=== PATIENT | female | born 1935 | race Caucasian/White ===

== ENCOUNTER → 2016-08-26 | Outpatient (CLI) | payer MEDICARE, BC ==
[~2016-08-26] MED LIST: ALEVE 220MG220 MG PO; AMITRIPTYLINE H10 M1 PO; ARTHRITIS PAIN325 M1; ASPIRIN 81M81 MG/TA2 PO; BACTRIM DS 8001 TAB PO; CALCIUM 600600 M2 PO; CEFTIN 250250 MG/TAB PO; CELLCEPT 5500 MG/TAB PO; CEPHALEXIN500 M1 PO; CIPRO 500MG TA500 MG PO; DAILY MULTIPLE1 TA3 PO; DITROPAN 5MG TAB5 MG PO; ELIQUIS 5MG PO; ESTRACE0.1 MG/GM VG; FLOMAX 0.40.4 MG/CAP PO; LEVAQUIN 2250 MG/TAB PO; MACRODANTIN100 PO; NAPROSYN500 MG PO; NASONEX SPRAY17 GM NS; NEURONTIN100 MG/CAP PO; NORCO 325 MG-101 TAB PO; NORCO 325 MG-51 TAB PO; OXYGEN; PONARIS NS; PREDNISONE 5MG5 MG PO; PREDNISONE20 MG PO; PRIL40 PO; PRILOSEC 20MG20 MG PO; PROBIOTIC FORMU1 CAP PO; PROBIOTICA100 Milli1 PO; SYNTHROID0.05 MG/TA PO; TYLENOL 500MG500 MG PO; TYLENOL ARTHRI650 M1 PO; ULTRAM 50MG TAB50 MG PO; VANCOCIN H125 MG/CAP PO; VESICARE 5MG5 MG PO; XALATAN EYE DROPS OU; ZOFRAN ODT4 MG PO; ZOLOFT 50MG50 MG PO
== END ==
LOC: COL.RAD 09:30
DX: M41.86 Other forms of scoliosis, lumbar region (principal); M47.27 Other spondylosis with radiculopathy, lumbosacral region; M54.5 Low back pain

== ENCOUNTER → 2016-09-01 | Outpatient (CLI) | payer MEDICARE, BC | LOC: COL.RAD 11:04 | DX: M51.26 Other intervertebral disc displacement, lumbar region (principal); M25.78 Osteophyte, vertebrae | CPT/HCPCS: A9585 ==

== ENCOUNTER → 2018-11-15 | Outpatient (CLI) | payer MEDICARE, BC | LOC: COL.RAD 12:34 | DX: N30.00 Acute cystitis without hematuria (principal); N13.30 Unspecified hydronephrosis; N26.1 Atrophy of kidney (terminal) ==

== ENCOUNTER 2018-12-07 17:05 | Outpatient (CLI) | payer MEDICARE, BC ==
[~2018-12-07] VITALS: Ht 157.5 cm; Wt 42.5 kg
[2018-12-07 17:22] VITALS: BP 112/64; PULSE 53; TEMP 98.1
== END 2018-12-07 17:28 | disposition home or self-care (01) ==
LOC: EUO 17:05
DX: M81.0 Age-related osteoporosis without current pathological fracture (principal)
CPT/HCPCS: J0897

== ENCOUNTER 2019-06-23 15:08 | Outpatient (CLI) | payer MEDICARE, BC ==
[~2019-06-23] VITALS: Ht 157.5 cm; Wt 43.3 kg
[2019-06-23 15:10] VITALS: BP 117/73; PULSE 110; TEMP 97.8
[2019-06-23] MEDS ORDERED: TRIMPEX100 MG PO (16:42)
[2019-06-23] MEDS ORDERED: PROBIOTIC FORMU1 CAP PO (16:43)
[2019-06-23] MEDS ORDERED: ZOLOFT 50MG50 MG PO (16:48)
[2019-06-23] MEDS ORDERED: AMITRIPTYLINE H10 M1 PO (16:49)
[2019-06-23] MEDS ORDERED: NAMENDA XR PO (16:49)
== END 2019-06-23 16:51 | disposition home or self-care (01) ==
LOC: EUO 15:08
DX: M81.0 Age-related osteoporosis without current pathological fracture (principal)
CPT/HCPCS: J0897

== ENCOUNTER 2019-11-28 20:55 | Emergency (ER) | payer MEDICARE, BC ==
[~2019-11-28 20:55] MED LIST changes: +NAMENDA XR PO; +TRIMPEX100 MG PO
[2019-11-28 21:05] VITALS: TEMP 97.2
[2019-11-28 21:47] LABS: BASO # 0.1 (0.0-0.2); BASO % 0.8 % (0.0-2.0); EOS # 0.1 (0.0-0.7); EOS % 0.9 % (0-4.0); GRAN # 7.9 (1.4-6.5); LYMPH # 2.5 (1.2-3.4); MEAN CELL VOLUME 101 fl (80.0-100.0); MEAN CORPUSCULAR HGB CONC 29 g/dl (33.0-37.0); MEAN PLATELET VOLUME 10.2 fl (7.4-10.4); MONO # 0.6 (0.1-0.6); MONO % 5.4 % (1.7-9.3); PLATELET COUNT 368 K/mm3 (130-400); RED BLOOD COUNT 2.98 M/mm3 (4.10-5.30); REDCELL DISTRIBUTION WIDTH-CV 13.7 % (11.5-14.5)
[2019-11-28] MEDS ORDERED: TIMOPTIC 0.25%-10 OU (21:48)
[2019-11-28 21:49] LABS: HEMOGLOBIN 8.8 g/dl (12.5-16.0); MEAN CORPUSCULAR HEMOGLOBIN 30 pg (27.0-31.0)
[2019-11-28] MEDS ORDERED: LOMOTIL 0.025 M1 TAB PO (21:49)
[2019-11-28] MEDS ORDERED: ALPHAGAN OPHTH D5 ML OU (21:50)
[2019-11-28 21:57] LABS: ALANINE AMINOTRANSFERASE 13 U/L (4-34); ALBUMIN 4.3 gm/dL (3.5-5.0); ALKALINE PHOSPHATASE 73 U/L (50-136); ANION GAP 7 mmol/L (7-16); AST,SGOT 26 U/L (15-37); BILIRUBIN,TOTAL 0.3 mg/dL (0.0-1.0); BLOOD UREA NITROGEN 60 mg/dL (7-17); CALCIUM 10.1 mg/dL (8.4-10.2); CARBON DIOXIDE 26 mmol/L (22-30); CHLORIDE 108 mmol/L (98-107); CREATININE, serum 2.55 (0.52-1.25); GLUCOSE 114 mg/dL (74-106); SODIUM 141 mmol/L (137-145); TOTAL PROTEIN 8.1 gm/dL (6.4-8.2)
[2019-11-28 22:16] LABS: POTASSIUM 5.8 mmol/L (3.4-5.0)
[2019-11-28 22:17] LABS: CREATINE KINASE < 20 U/L (30-135); TROPONIN-I < 0.012 ng/mL (0.000-0.035)
[2019-11-28 23:05] LABS: COLLECTION METHOD CATHETER
[2019-11-28 23:11] LABS: PH 5 (5-8); SQUAMOUS EPITHELIAL None Seen /hpf; URINE APPEARANCE Hazy; URINE BACTERIA Rare /hpf; URINE BILIRUBIN Negative (NEGATIVE); URINE BLOOD Negative (NEGATIVE); URINE COLOR Yellow; URINE GLUCOSE Negative (NEGATIVE); URINE KETONE Negative (NEGATIVE); URINE LEUKOCYTE ESTERASE 3+ (NEGATIVE); URINE NITRATE Negative (NEGATIVE); URINE PROTEIN(semi-quant) Negative (NEGATIVE); URINE RBC 0-2 /hpf; URINE UROBILINOGEN Negative (NEGATIVE)
[2019-11-28 23:39] VITALS: BP 155/80; PULSE 70
== END 2019-11-28 23:39 | disposition short-term general hospital (02) ==
LOC: COL.ER 20:55
PROVIDERS: Emergency Medicine
DX: S06.2X9A Diffuse traumatic brain injury with loss of consciousness of unspecified duration, initial encounter (principal); W19.XXXA Unspecified fall, initial encounter; Y92.009 Unspecified place in unspecified non-institutional (private) residence as the place of occurrence of the external cause; M79.7 Fibromyalgia; F03.90 Unspecified dementia, unspecified severity, without behavioral disturbance, psychotic disturbance, mood disturbance, and anxiety; Z79.82 Long term (current) use of aspirin; Z79.899 Other long term (current) drug therapy
CPT/HCPCS: J1953; J3010; J7030; J7050

== ENCOUNTER 2019-12-23 15:05 | Outpatient (CLI) | payer MEDICARE, BC ==
[~2019-12-23] VITALS: Ht 157.5 cm; Wt 41.4 kg
[~2019-12-23 15:05] MED LIST changes: +ALPHAGAN OPHTH D5 ML OU; +LOMOTIL 0.025 M1 TAB PO; +TIMOPTIC 0.25%-10 OU
[2019-12-23 15:18] VITALS: BP 89/45; PULSE 52; TEMP 97.4
== END 2019-12-23 15:42 | disposition home or self-care (01) ==
LOC: EUO 15:05
DX: M81.0 Age-related osteoporosis without current pathological fracture (principal)
CPT/HCPCS: J0897

== ENCOUNTER → 2020-01-04 | Outpatient (CLI) | payer MEDICARE, BC ==
[~2020-01-04] MED LIST changes: +ALPHAGAN OPHTH D5 ML OD; -ALPHAGAN OPHTH D5 ML OU
== END ==
LOC: COL.RAD 10:30
DX: R13.10 Dysphagia, unspecified (principal)